=== PATIENT | female | born 1965 | race Two or more races ===

== ENCOUNTER → 2017-06-25 | Day surgery (SDC) | payer BC ==
[~2017-06-25] MED LIST: PROPOFOL 40 ML IV; ePHEDrine PF IN SALINE 50 MG/5 ML DISP.SYRIN IV
[2017-06-25] MEDS: IV RINGERS,LACTATED 1000ML 1,000 ML IV ×2 (14:18)
== END | disposition home or self-care (01) ==
LOC: SURG 13:28
DX: K64.0 First degree hemorrhoids (principal); K57.32 Diverticulitis of large intestine without perforation or abscess without bleeding; Z90.49 Acquired absence of other specified parts of digestive tract
CPT/HCPCS: 44388; J2704